=== PATIENT | female | born 1995 | race Two or more races ===

== ENCOUNTER 2018-02-17 00:02 | Outpatient (CLI) | payer BC, MEDICAID ==
[2018-02-17] MEDS ORDERED: LACTATED RINGER'S 1,000 ML IV (01:30)
[2018-02-17 01:36] LABS: ADD UMIC YES; UR ASCORBIC ACID NEGATIVE (NEGATIVE); UR BILIRUBIN (Dip) NEGATIVE (NEGATIVE); UR BLOOD (Dip) NEGATIVE (NEGATIVE); UR CLARITY CLEAR (CLEAR); UR COLOR COLORLESS (YELLOW); UR GLUCOSE (Dip) NEGATIVE (NEGATIVE); UR KETONES (Dip) NEGATIVE (NEGATIVE); UR LEUKOCYTE ESTERASE (Dip) TRACE Leu/ul (NEGATIVE); UR NITRITE (Dip) NEGATIVE (NEGATIVE); UR RBC 0 /HPF (0-5); UR SPECIFIC GRAVITY (Dip) 1.003 (1.003-1.030); UR TOTAL PROTEIN (Dip) NEGATIVE (NEGATIVE); UR UROBILINOGEN (Dip) NEGATIVE (NEGATIVE); UR WBC 1 /HPF (0-5)
[2018-02-17] MEDS: LACTATED RINGER'S 1,000 ML IV (02:17)
[2018-02-17] MEDS: TERBUTALINE 1 MG/ML INJ SC (02:40)
[2018-02-17] MEDS: ACETAMINOPHEN 500 MG TAB PO (02:41)
== END 2018-02-17 03:54 | disposition home or self-care (01) ==
LOC: OBT 00:02 → L-D 00:02 → OBT 03:54
DX: O47.03 False labor before 37 completed weeks of gestation, third trimester (principal); Z3A.28 28 weeks gestation of pregnancy
CPT/HCPCS: 36415; 76817; 81001; 87086; 96360; 96372

== ENCOUNTER 2018-03-24 15:31 | Inpatient (IN) | payer BC ==
[2018-03-24] MEDS: LACTATED RINGER'S 250 ML IV (18:39)
[2018-03-24] MEDS ORDERED: ACETAMINOPHEN 325 MG TAB PO (21:00)
[2018-03-24] MEDS: LACTATED RINGER'S 1,000 ML IV (21:17)
[2018-03-24] MEDS: FERROUS SULFATE (EC) 325 MG TAB PO (21:20)
[2018-03-24] MEDS: BETAMET NA PHOS/AC(6 MG/ML) 5ML INJ IM (21:22)
[2018-03-24 22:58] LABS: ADD MAN DIFF? NO
[2018-03-24] MEDS ORDERED: ONDANSETRON 4 MG INJ IV (23:00)
[2018-03-24 23:01] LABS: WHITE BLOOD COUNT 6.4 10^3/ul (4.8-10.8)
[2018-03-24 23:01] LABS: BASOPHILS % 0.2 % (0.0-2.0); EOSINOPHILS % 0.6 % (0.0-7.0); HEMATOCRIT 27.2 % (37.0-47.0); HEMOGLOBIN 8.3 g/dl (12.0-16.0); LYMPHOCYTES # 1.6 10^3/ul (0.8-2.9); LYMPHOCYTES % 24.8 % (15.0-51.0); MEAN CORPUSCULAR HEMOGLOBIN 22.5 pg (29.0-33.0); MEAN CORPUSCULAR HGB CONC 30.5 g/dl (32.0-37.0); MEAN CORPUSCULAR VOLUME 73.7 fl (82.0-101.0); MEAN PLATELET VOLUME 11.4 fl (7.4-10.4); MONOCYTE # 0.4 10^3/ul (0.3-0.9); NEUTROPHIL # 4.3 10^3/ul (1.6-7.5); NEUTROPHILS % 67.3 % (39.0-77.0); PLATELET COUNT 179 10^3/UL (140-415); RED BLOOD COUNT 3.69 10^6/ul (4.20-5.40); RED CELL DISTRIBUTION WIDTH 17.4 % (11.5-14.5)
[2018-03-24] MEDS: CALCIUM CARBONATE 500 MG CHEW TAB PO (23:42)
[2018-03-25] MEDS: LACTATED RINGER'S 1,000 ML IV ×3 (04:34→21:20)
[2018-03-25] MEDS: TERBUTALINE 1 MG/ML INJ SC (07:10)
[2018-03-25] MEDS: PRENATAL VITAMIN PO (09:07)
[2018-03-25] MEDS: FERROUS SULFATE (EC) 325 MG TAB PO ×3 (09:07→21:20)
[2018-03-25] MEDS: CALCIUM CARBONATE 500 MG CHEW TAB PO ×3 (11:42→21:27)
[2018-03-25 16:52] LABS: ADD UMIC NO; UR ASCORBIC ACID NEGATIVE (NEGATIVE); UR BILIRUBIN (Dip) NEGATIVE (NEGATIVE); UR BLOOD (Dip) NEGATIVE (NEGATIVE); UR CLARITY CLEAR (CLEAR); UR COLOR STRAW (YELLOW); UR GLUCOSE (Dip) 2+ mg/dL (NEGATIVE); UR KETONES (Dip) TRACE mg/dL (NEGATIVE); UR LEUKOCYTE ESTERASE (Dip) NEGATIVE Leu/ul (NEGATIVE); UR NITRITE (Dip) NEGATIVE (NEGATIVE); UR TOTAL PROTEIN (Dip) NEGATIVE (NEGATIVE); UR UROBILINOGEN (Dip) NEGATIVE (NEGATIVE)
[2018-03-25] MEDS: MAGNESIUM SULFATE 4 GM/100 ML 100 ML IVPB (17:17)
[2018-03-25] MEDS: MAGNESIUM SULFATE 20 GM/500 ML 500 ML IV (17:43)
[2018-03-25] MEDS: BETAMET NA PHOS/AC(6 MG/ML) 5ML INJ IM (21:20)
[2018-03-26 00:58] LABS: MAGNESIUM 3.9 mg/dl (1.7-2.5)
[2018-03-26] MEDS: MAGNESIUM SULFATE 20 GM/500 ML 500 ML IV (03:16)
[2018-03-26 07:44] LABS: MAGNESIUM 4.7 mg/dl (1.7-2.5)
[2018-03-26] MEDS: PRENATAL VITAMIN PO (09:23)
[2018-03-26] MEDS: FERROUS SULFATE (EC) 325 MG TAB PO (09:23)
[2018-03-26] MEDS: LACTATED RINGER'S 1,000 ML IV (10:46)
[2018-03-26 13:16] LABS: ADD MAN DIFF? NO
[2018-03-26 13:18] LABS: WHITE BLOOD COUNT 8.6 10^3/ul (4.8-10.8)
[2018-03-26 13:18] LABS: BASOPHILS % 0.1 % (0.0-2.0); HEMATOCRIT 28.9 % (37.0-47.0); HEMOGLOBIN 8.5 g/dl (12.0-16.0); LYMPHOCYTES # 1.4 10^3/ul (0.8-2.9); MEAN CORPUSCULAR HEMOGLOBIN 22.4 pg (29.0-33.0); MEAN CORPUSCULAR HGB CONC 29.4 g/dl (32.0-37.0); MEAN CORPUSCULAR VOLUME 76.3 fl (82.0-101.0); MEAN PLATELET VOLUME 11.4 fl (7.4-10.4); MONOCYTE # 0.3 10^3/ul (0.3-0.9); MONOCYTES % 2.9 % (0.0-11.0); NEUTROPHIL # 6.6 10^3/ul (1.6-7.5); NEUTROPHILS % 76.7 % (39.0-77.0); PLATELET COUNT 178 10^3/UL (140-415); RED BLOOD COUNT 3.79 10^6/ul (4.20-5.40); RED CELL DISTRIBUTION WIDTH 18.5 % (11.5-14.5)
== END 2018-03-26 18:00 | disposition home or self-care (01) | DRG 781 ==
LOC: OBT 15:31 → L-D 15:33 → OBT 20:50 → L-D 20:50
PROVIDERS: Obstetrics & Gynecology
DX: O99.013 Anemia complicating pregnancy, third trimester (principal); O60.03 Preterm labor without delivery, third trimester; D64.9 Anemia, unspecified; Z3A.33 33 weeks gestation of pregnancy
CPT/HCPCS: 36415; 76817; 76818; 81003; 83735; 85025; 87081; 87086; 96360

== ENCOUNTER 2018-04-10 02:08 | Outpatient (CLI) | payer BC ==
[2018-04-10 03:49] LABS: ADD UMIC NO; UR ASCORBIC ACID NEGATIVE (NEGATIVE); UR BILIRUBIN (Dip) NEGATIVE (NEGATIVE); UR BLOOD (Dip) NEGATIVE (NEGATIVE); UR CLARITY CLEAR (CLEAR); UR COLOR YELLOW (YELLOW); UR GLUCOSE (Dip) 1+ mg/dL (NEGATIVE); UR KETONES (Dip) NEGATIVE (NEGATIVE); UR LEUKOCYTE ESTERASE (Dip) NEGATIVE Leu/ul (NEGATIVE); UR NITRITE (Dip) NEGATIVE (NEGATIVE); UR SPECIFIC GRAVITY (Dip) 1.012 (1.003-1.030); UR TOTAL PROTEIN (Dip) NEGATIVE (NEGATIVE); UR UROBILINOGEN (Dip) NEGATIVE (NEGATIVE)
== END 2018-04-10 05:40 | disposition home or self-care (01) ==
LOC: OBT 02:08 → L-D 02:08 → OBT 05:40
DX: O99.342 Other mental disorders complicating pregnancy, second trimester (principal); O62.9 Abnormality of forces of labor, unspecified; F41.0 Panic disorder [episodic paroxysmal anxiety]; Z3A.36 36 weeks gestation of pregnancy
CPT/HCPCS: 76815; 76818; 81003

== ENCOUNTER 2018-04-25 01:50 | Inpatient (IN) | payer BC ==
[2018-04-25] MEDS ORDERED: MISOPROSTOL 200 MCG TAB PR (03:30)
[2018-04-25] MEDS ORDERED: LIDOCAINE 1% (MPF) 30 ML INJ INJ (03:30)
[2018-04-25] MEDS ORDERED: METHYLERGONOVINE 0.2 MG INJ IM (03:30)
[2018-04-25] MEDS ORDERED: CARBOPROST 250 MCG INJ IM (03:30)
[2018-04-25] MEDS ORDERED: OXYTOCIN 30 UNITS/LR 500 ML IV (03:30)
[2018-04-25] MEDS: LACTATED RINGER'S 1,000 ML IV* ×3 (04:25→20:41)
[2018-04-25] MEDS: AMPICILLIN 2 GM/NS (PMX) 100 ML IV (05:06)
[2018-04-25 05:43] LABS: ABNORMAL IP MESSAGE 1; BASOPHILS % 0.3 % (0.0-2.0); EOSINOPHILS % 0.5 % (0.0-7.0); HEMATOCRIT 32.9 % (37.0-47.0); HEMOGLOBIN 10.1 g/dl (12.0-16.0); LYMPHOCYTES # 2.1 10^3/ul (0.8-2.9); LYMPHOCYTES % 27.8 % (15.0-51.0); MEAN CORPUSCULAR HEMOGLOBIN 22.3 pg (29.0-33.0); MEAN CORPUSCULAR HGB CONC 30.7 g/dl (32.0-37.0); MEAN CORPUSCULAR VOLUME 72.8 fl (82.0-101.0); MEAN PLATELET VOLUME 11.3 fl (7.4-10.4); MONOCYTE # 0.5 10^3/ul (0.3-0.9); MONOCYTES % 6.2 % (0.0-11.0); NEUTROPHIL # 4.9 10^3/ul (1.6-7.5); NEUTROPHILS % 64.7 % (39.0-77.0); PLATELET COUNT 214 10^3/UL (140-415); RED BLOOD COUNT 4.52 10^6/ul (4.20-5.40); RED CELL DISTRIBUTION WIDTH 19.8 % (11.5-14.5)
[2018-04-25 05:43] LABS: WHITE BLOOD COUNT 7.6 10^3/ul (4.8-10.8)
[2018-04-25 05:44] LABS: ADD MAN DIFF? NO
[2018-04-25 06:03] LABS: INR 0.87; PROTIME 11.9 Sec (11.9-14.9); PT RATIO 0.9
[2018-04-25 06:04] LABS: PARTIAL THROMBOPLASTIN TIME 24.6 Sec (23.0-35.0)
[2018-04-25 06:05] LABS: POSITIVE DIFF @See below
[2018-04-25 06:45] LABS: HEPATITIS B SURFACE ANTIGEN NEGATIVE (NEGATIVE)
[2018-04-25] MEDS: AMPICILLIN 1 GM/NS (PMX) 50 ML IV ×4 (09:34→20:41)
[2018-04-25] MEDS: OXYTOCIN 30 UNITS/LR 500 ML IV (12:08)
[2018-04-25] MEDS ORDERED: FENTAnyl 2MCG/ML-ROPIV 0.2% 100 ML (12:53)
[2018-04-25] MEDS ORDERED: NALOXONE (0.4 MG/ML) INJ IV (13:00)
[2018-04-25 16:16] LABS: RAPID PLASMA REAGIN NONREACTIVE (NR)
[2018-04-25] MEDS: FENTAnyl 2MCG/ML-ROPIV 0.2% 100 ML BAG EPI (20:52)
[2018-04-26] MEDS: AMPICILLIN 1 GM/NS (PMX) 50 ML IV ×2 (00:27→04:11)
[2018-04-26] MEDS ORDERED: LIDOCAINE 0.5% (SDV) 50 ML INJ (01:17)
[2018-04-26] MEDS ORDERED: MINERAL OIL LIGHT 10 ML VIAL (01:18)
[2018-04-26] MEDS: FENTAnyl 2MCG/ML-ROPIV 0.2% 100 ML BAG EPI (02:04)
[2018-04-26] MEDS: OXYTOCIN 30 UNITS/LR 500 ML IV (07:10)
[2018-04-26] MEDS ORDERED: IBUPROFEN 600 MG TAB (07:51)
[2018-04-26] MEDS: IBUPROFEN 600 MG TAB PO ×4 (08:10→23:28)
[2018-04-26] MEDS: DEXTROSE 5%-LR 1,000 ML IV ×2 (08:17→16:17)
[2018-04-26] MEDS ORDERED: METHYLERGONOVINE 0.2 MG INJ IM (08:30)
[2018-04-26] MEDS ORDERED: ONDANSETRON 4 MG INJ IV (08:30)
[2018-04-26] MEDS ORDERED: DIBUCAINE 1% 30 GM OINT PR (08:30)
[2018-04-26] MEDS ORDERED: DIPHENHYDRAMINE 50 MG INJ IV (08:30)
[2018-04-26] MEDS ORDERED: MISOPROSTOL 200 MCG TAB PR (08:30)
[2018-04-26] MEDS ORDERED: OXYTOCIN 30 UNITS/LR 500 ML IV (08:30)
[2018-04-26] MEDS ORDERED: HYDROCODONE/APAP (5/325) TAB PO (08:30)
[2018-04-26] MEDS ORDERED: ZOLPIDEM 5 MG TAB PO (08:30)
[2018-04-26] MEDS ORDERED: ACETAMINOPHEN 325 MG TAB PO (08:30)
[2018-04-26] MEDS ORDERED: CARBOPROST 250 MCG INJ IM (08:30)
[2018-04-26] MEDS: LACTATED RINGER'S 1,000 ML IV* ×2 (09:15→16:17)
[2018-04-26] MEDS: BENZOCAINE 20% 56 ML SPRAY TOP (12:41)
[2018-04-26] MEDS: WITCH HAZEL/GLYCERIN PAD PR (12:41)
[2018-04-26] MEDS: LANOLIN 7 GM TUBE TOP (23:28)
[2018-04-27] MEDS: LACTATED RINGER'S 1,000 ML IV* ×3 (00:17→16:17)
[2018-04-27] MEDS: DEXTROSE 5%-LR 1,000 ML IV ×3 (00:17→16:17)
[2018-04-27] MEDS: IBUPROFEN 600 MG TAB PO ×4 (05:21→23:35)
[2018-04-27 08:45] LABS: ADD MAN DIFF? NO
[2018-04-27 08:52] LABS: ABNORMAL IP MESSAGE 1; BASOPHILS % 0.2 % (0.0-2.0); EOSINOPHILS # 0.1 10^3/ul (0.0-0.5); EOSINOPHILS % 1.1 % (0.0-7.0); HEMOGLOBIN 8.1 g/dl (12.0-16.0); LYMPHOCYTES # 2.3 10^3/ul (0.8-2.9); LYMPHOCYTES % 27.3 % (15.0-51.0); MEAN CORPUSCULAR HEMOGLOBIN 22.1 pg (29.0-33.0); MEAN CORPUSCULAR VOLUME 73.8 fl (82.0-101.0); MEAN PLATELET VOLUME 11.6 fl (7.4-10.4); MONOCYTE # 0.6 10^3/ul (0.3-0.9); MONOCYTES % 7.5 % (0.0-11.0); NEUTROPHIL # 5.2 10^3/ul (1.6-7.5); NEUTROPHILS % 63.2 % (39.0-77.0); PLATELET COUNT 175 10^3/UL (140-415); RED BLOOD COUNT 3.66 10^6/ul (4.20-5.40)
[2018-04-27 08:52] LABS: WHITE BLOOD COUNT 8.3 10^3/ul (4.8-10.8)
[2018-04-27 09:06] LABS: POSITIVE DIFF @See below
[2018-04-27] MEDS: SENNA/DOCUSATE NA (8.6MG/50MG) TAB PO ×2 (09:08→20:25)
[2018-04-27] MEDS: MAGNESIUM HYDROXIDE 30ML CUP PO (09:08)
[2018-04-28] MEDS: IBUPROFEN 600 MG TAB PO ×2 (05:39→12:11)
[2018-04-28] MEDS: DIPHTH/TET/ACEL PERTUSS (ADULT) 0.5 ML VIAL IM* (09:00)
[2018-04-28] MEDS: MEASLES,MUMPS,RUBELLA VACCINE INJ SC* (09:00)
[2018-04-28] MEDS: WITCH HAZEL/GLYCERIN PAD PR (12:21)
[2018-04-28] MEDS: BENZOCAINE 20% 56 ML SPRAY TOP (12:22)
== END 2018-04-28 14:45 | disposition home or self-care (01) | DRG 807 ==
LOC: OBT 01:50 → PP1 04-26 09:34 → L-D 01:50 → OBT 03:15 → L-D 03:15
PROVIDERS: Obstetrics & Gynecology
PROC: 10E0XZZ Delivery of Products of Conception, External Approach (ICD-10-PCS; principal; 2018-04-26)
PROC: 0KQM0ZZ Repair Perineum Muscle, Open Approach (ICD-10-PCS; 2018-04-26)
PROC: 3E033VJ Introduction of Other Hormone into Peripheral Vein, Percutaneous Approach (ICD-10-PCS; 2018-04-26)
DX: O69.81X0 Labor and delivery complicated by cord around neck, without compression, not applicable or unspecified (principal); Z37.0 Single live birth; O70.0 First degree perineal laceration during delivery; Z3A.38 38 weeks gestation of pregnancy
CPT/HCPCS: 62319; 85025; 85610; 85730; 86592; 86850; 86900; 86901; 87340; 90715

== ENCOUNTER 2018-06-18 16:21 | Emergency (ER) | payer BC ==
[2018-06-18 17:40] LABS: ADD MAN DIFF? NO
[2018-06-18 17:41] LABS: WHITE BLOOD COUNT 4.8 10^3/ul (4.8-10.8)
[2018-06-18 17:41] LABS: BASOPHILS % 0.6 % (0.0-2.0); EOSINOPHILS % 0.8 % (0.0-7.0); HEMATOCRIT 36.2 % (37.0-47.0); HEMOGLOBIN 11.1 g/dl (12.0-16.0); LYMPHOCYTES # 1.9 10^3/ul (0.8-2.9); LYMPHOCYTES % 39.9 % (15.0-51.0); MEAN CORPUSCULAR HEMOGLOBIN 23.5 pg (29.0-33.0); MEAN CORPUSCULAR HGB CONC 30.7 g/dl (32.0-37.0); MEAN CORPUSCULAR VOLUME 76.7 fl (82.0-101.0); MEAN PLATELET VOLUME 10.6 fl (7.4-10.4); MONOCYTE # 0.3 10^3/ul (0.3-0.9); MONOCYTES % 5.6 % (0.0-11.0); NEUTROPHIL # 2.5 10^3/ul (1.6-7.5); NEUTROPHILS % 52.9 % (39.0-77.0); PLATELET COUNT 276 10^3/UL (140-415); RED BLOOD COUNT 4.72 10^6/ul (4.20-5.40); RED CELL DISTRIBUTION WIDTH 19.3 % (11.5-14.5)
[2018-06-18 17:43] LABS: ADD UMIC NO; UR ASCORBIC ACID NEGATIVE (NEGATIVE); UR BILIRUBIN (Dip) NEGATIVE (NEGATIVE); UR BLOOD (Dip) NEGATIVE (NEGATIVE); UR CLARITY SLIGHTLY CLOUDY (CLEAR); UR COLOR YELLOW (YELLOW); UR GLUCOSE (Dip) NEGATIVE (NEGATIVE); UR KETONES (Dip) NEGATIVE (NEGATIVE); UR LEUKOCYTE ESTERASE (Dip) NEGATIVE Leu/ul (NEGATIVE); UR MUCUS FEW /HPF (NONE SEEN); UR NITRITE (Dip) NEGATIVE (NEGATIVE); UR RBC 1 /HPF (0-5); UR SPECIFIC GRAVITY (Dip) 1.023 (1.003-1.030); UR SQUAMOUS EPITHELIAL CELL FEW /HPF (FEW); UR TOTAL PROTEIN (Dip) NEGATIVE (NEGATIVE); UR UROBILINOGEN (Dip) NEGATIVE (NEGATIVE); UR WBC 2 /HPF (0-5)
[2018-06-18 18:00] LABS: ALANINE AMINOTRANSFERASE 86 IU/L (13-69); ALBUMIN 4.5 g/dl (3.3-4.9); ALBUMIN/GLOBULIN RATIO 1.55; ALKALINE PHOSPHATASE 70 IU/L (42-121); ASPARTATE AMINO TRANSFERASE 61 IU/L (15-46); BILIRUBIN,INDIRECT 0.4 mg/dl (0-1.1); BILIRUBIN,TOTAL 0.4 mg/dl (0.2-1.3); BLOOD UREA NITROGEN 10 mg/dl (7-20); CALCIUM 9.7 mg/dl (8.4-10.2); CARBON DIOXIDE 27 mmol/L (21-31); CREATININE 0.72 mg/dl (0.44-1.00); Estimated GFR > 60 mL/min (>60); GLUCOSE 74 mg/dl (70-220); LIPASE 93 U/L (23-300); TOTAL PROTEIN 7.4 g/dl (6.1-8.1)
[2018-06-18 18:11] LABS: ANION GAP 12 (5-13); CHLORIDE 103 mmol/L (97-110); POTASSIUM 4.2 mmol/L (3.5-5.1); SODIUM 142 mmol/L (135-144)
== END 2018-06-18 18:30 | disposition home or self-care (01) ==
LOC: FTE 16:21
DX: R42 Dizziness and giddiness (principal); R11.2 Nausea with vomiting, unspecified
CPT/HCPCS: 80053; 81001; 81003; 83690; 85025; 93005; 99284-25